=== PATIENT | female | born 1950 | race Hispanic/Latino ===

== ENCOUNTER 2021-03-27 06:48 | Day surgery (SDC) | payer OTHER ==
[2021-03-20 11:28] LABS: BASOPHILS % (AUTO) 1.1 % (0.0-5.0); EOSINOPHILS % (AUTO) 5.3 % (0.0-8.0); HEMATOCRIT 41.7 % (36-48); LYMPHOCYTES % (AUTO) 18.4 % (21.0-51.0); MEAN CORPUSCULAR HEMOGLOBIN 31.1 pg (27.0-33.0); MEAN CORPUSCULAR HGB CONC 31.9 g/dL (32.0-36.0); MEAN CORPUSCULAR VOLUME 97.7 fL (79-99); MONOCYTES % (AUTO) 8.5 % (3.0-13.0); NEUTROPHILS % (AUTO) 66.2 % (40.0-77.0); PLATELET COUNT (AUTO) 266 K/uL (130-400); RED BLOOD CELL COUNT(AUTO) 4.27 MIL/uL (4.00-5.50); RED CELL DISTRIBUTION WIDTH 12.3 % (11.0-15.5); WHITE BLOOD COUNT (AUTO) 7.9 K/uL (4.8-10.8)
[2021-03-20 11:44] LABS: CREATININE 0.6 mg/dL (0.5-1.5); POTASSIUM 4.2 mmol/L (3.5-5.1)
[2021-03-26 10:15] VITALS: BP 162/93
[2021-03-27] VITALS (16 sets, daily range): BP systolic 132–158; BP diastolic 72–87
[~2021-03-27] VITALS: Ht 154.9 cm; Wt 69.9 kg
[~2021-03-27 06:48] MED LIST: ATOR20TA65 PO; LISI10TA24 PO
[2021-03-27] MEDS ORDERED: NEOSTIGMINE 5MG/5ML SYR IV ONE (07:28)
[2021-03-27] MEDS ORDERED: SUCCINYLCHOLINE 200MG/10ML SYR ONE (07:28)
[2021-03-27] MEDS ORDERED: ONDANSETRON 4MG INJ ONE (07:28)
[2021-03-27] MEDS ORDERED: PROPOFOL 10 MG/ML 20ML VIAL IV ONE ×2 (07:28→14:09)
[2021-03-27] MEDS ORDERED: DEXAMETHASONE SOD PHOSPHATE 10MG/ML 1ML VIAL ONE (07:28)
[2021-03-27] MEDS ORDERED: LIDOCAINE PF 100MG/5ML (2%) SYRINGE 5ML ONE (07:28)
[2021-03-27] MEDS ORDERED: GLYCOPYRROLATE 1 MG/5 ML SYRINGE ONE (07:28)
[2021-03-27] MEDS ORDERED: FENTANYL CITRATE PF 50 MCG/1 ML 2ML VIAL ONE ×2 (07:29→13:52)
[2021-03-27] MEDS ORDERED: MIDAZOLAM HCL 1 MG/ML 2ML VIAL ONE (07:29)
[2021-03-27] MEDS ORDERED: ROCURONIUM 10MG/1ML SYR 10 MG/ML ML ONE ×2 (07:29→10:25)
[2021-03-27] MEDS ORDERED: LACTATED RINGERS 1000ML 1,000 ML IV ONE (07:30)
[2021-03-27] MEDS ORDERED: CEFAZOLIN SODIUM 1 GM VIAL ONE (07:30)
[2021-03-27] MEDS ORDERED: INDOCYANINE GREEN 25 MG VIAL IJ ONE (07:47)
[2021-03-27] MEDS ORDERED: INDOCYANINE GREEN 25 MG VIAL IJ SCH (08:00)
[2021-03-27] MEDS ORDERED: MEPERIDINE-PF 25 MG/ML SYG ONE ×3 (08:22→14:50)
[2021-03-27] MEDS ORDERED: LIDOCAINE HCL 1% 20 ML VIAL ONE (08:32)
[2021-03-27] MEDS ORDERED: BUPIVACAINE/PF 0.25% 30ML VIAL IJ ONE (08:32)
[2021-03-27] MEDS ORDERED: CLINDAMYCIN IVPB 600MG/50ML 50 ML IV ONE (08:33)
[2021-03-27] MEDS ORDERED: IOHEXOL-350 50ML VIAL IV ONE (11:43)
[2021-03-27] MEDS ORDERED: SUGAMMADEX SODIUM 200 MG/2 ML VIAL IV ONE (13:43)
== END 2021-03-27 16:30 | disposition home or self-care (01) ==
LOC: DAH 06:48
PROVIDERS: ATTEND Student in an Organized Health Care Education/Training Program
DX: K80.11 Calculus of gallbladder with chronic cholecystitis with obstruction (principal); Z20.822 Contact with and (suspected) exposure to COVID-19; I10 Essential (primary) hypertension; E78.5 Hyperlipidemia, unspecified; Z83.3 Family history of diabetes mellitus; Z80.59 Family history of malignant neoplasm of other urinary tract organ; Z98.51 Tubal ligation status; Z98.890 Other specified postprocedural states
CPT/HCPCS: 36415; 47562; 71045; 80048; 85025; 87635; 88304; 93005; A4213; A4215; A4221; A4222; A4223; A4600; A4649 ×5; A4663; A4930; A6260; C1769 ×2; C9803; G0168; J0330; J0690; J1100; J2001; J2175 ×3; J2250; J2405; J2704 ×2; J2710; J3010 ×2; J3490 ×3; J7030; J7120 ×2; Q9967